=== PATIENT | female | born 1990 | race Caucasian/White ===

== ENCOUNTER 2018-02-03 19:29 | Emergency (ER) | payer BC, OTHER ==
[~2018-02-03] VITALS: Ht 157.5 cm; Wt 57.1 kg
[~2018-02-03 19:29] MED LIST: ACET325 PO; ALBU90OI INH; AMOCLA875 PO; AMOX250 PO; BIRTH CONTROL PILL PO; CODBUTACEC PO; CODGUAEL PO; DOCU100 PO; DOXY100 PO; HYDACE5 PO; IBUP600 PO; IBUP800 PO; NAPR500 PO; PANT40 PO; PREN-16; PROM25 PO; Prenatal Vitam1 EAC2 PO; RANI150 PO; RXOXYACE PO; Verotin-Gr Cap1 EACH PO; [UNRECOGNIZED DRUG - REMARK]
[2018-02-03 20:17] LABS: Source, Urine Clean Catch
[2018-02-03 20:21] LABS: Appearance, Urine Cloudy (Clear); Bilirubin, Urine Neg (Neg); Blood, Urine 5+ (Neg); Color, Urine Yellow (P-Yellow); Glucose Qualitative, Urine Neg (Neg); Ketones, Urine Neg (Neg); Leukocyte Esterase, Urine 3+ (Neg); Nitrite, Urine Neg (Neg); Protein, Urine 4+ (Neg); Urobilinogen, Urine NORM (Normal)
[2018-02-03 20:32] LABS: White Blood Cells, Urine TNTC /hpf (0-5)
[2018-02-03 20:34] LABS: Bacteria Few /hpf; Squamous Epithelial Cells Rare /hpf (Few)
[2018-02-03] MEDS ORDERED: CEFP200 PO (20:43)
== END 2018-02-03 20:52 | disposition home or self-care (01) ==
LOC: ER 19:29
PROVIDERS: Physician Assistant
DX: N12 Tubulo-interstitial nephritis, not specified as acute or chronic (principal); F17.210 Nicotine dependence, cigarettes, uncomplicated; Z88.2 Allergy status to sulfonamides; Z79.899 Other long term (current) drug therapy
CPT/HCPCS: 81001; 81025; 87077; 87086; 87186; 99283

== ENCOUNTER → 2019-01-11 | Outpatient (CLI) | payer BC, OTHER ==
[~2019-01-11] MED LIST changes: +CEFP200 PO
[2019-01-11 14:42] LABS: Candida species (DNA Probe) Negative (NEGATIVE); G. vaginalis (DNA Probe) Positive (NEGATIVE); T. vaginalis (DNA Probe) Negative (NEGATIVE)
== END | disposition home or self-care (01) ==
LOC: LAB 12:42 → LAB SHORT 12:42
PROVIDERS: Advanced Practice Midwife
DX: N76.0 Acute vaginitis (principal)
CPT/HCPCS: 87480; 87510; 87660

== ENCOUNTER → 2019-04-21 | Outpatient (CLI) | payer BC, OTHER | END | disposition home or self-care (01) | LOC: LAB SHORT 15:27 → LAB EV 15:27 | DX: N39.0 Urinary tract infection, site not specified (principal) | CPT/HCPCS: 87086 ==

== ENCOUNTER → 2024-06-03 | Outpatient (CLI) | payer BC, OTHER | LOC: LAB SHORT 17:15 → LAB 17:15 | DX: N39.0 Urinary tract infection, site not specified (principal) | CPT/HCPCS: 87086 ==